=== PATIENT | female | born 1975 | race Caucasian/White ===

== ENCOUNTER → 2016-12-18 | Outpatient (CLI) | payer BC ==
--- NOTE | 2016-12-18 14:21 | XR ---
EXAMINATION TYPE: XR spine complete AP and Lat DATE OF EXAM ORDERED: 12/18/2016 2:14 PM HISTORY: [id number] Pain, unspecified. COMPARISON: Previous study dated 06/20/2014. FINDINGS: The cervical spine, vertebral body height and alignment are maintained. Prevertebral soft tissues are normal. Atlantoaxial relationships are normal. There is no significant degenerative greenfield e. Within the thoracic spine, vertebral body height and alignment are maintained. There is mild hypertro phic spondylosis in the mid to lower dorsal spine. No fractures are seen. Within the lumbar spine, vertebral body height and alignment are maintained. There is disc space loss at L5-S1. There is hypertrophic spondylosis at L1-2 and L5-S1. There is no spondylolysis or spondylo listhesis. The pedicles are intact. IMPRESSION: 1. NO ACUTE OSSEOUS LESION. 2. MILD DEGENERATIVE CHANGE DESCRIBED.
== END | disposition home or self-care (01) ==
LOC: RADXRMAIN 13:49
PROVIDERS: ATTEND Internal Medicine
DX: M47.812 Spondylosis without myelopathy or radiculopathy, cervical region (principal); M47.814 Spondylosis without myelopathy or radiculopathy, thoracic region; M47.816 Spondylosis without myelopathy or radiculopathy, lumbar region
CPT/HCPCS: 72082

== ENCOUNTER → 2018-10-15 | Outpatient (CLI) | payer BC ==
--- NOTE | 2018-10-15 11:20 | MR ---
EXAMINATION TYPE: MR brain wo/w con DATE OF EXAM: 10/15/2018 COMPARISON: NONE HISTORY: Papilledema / Disc Edema TECHNIQUE: Multiplanar, multisequence images of the brain and brainstem is performed without and with IV contras t, utilizing 10 mL intravenous Gadavist . FINDINGS: Diffusion weighted images demonstrate no evidence of a recent infarct or other diffusion ab normality. There is no extra-axial fluid collection or significant white matter signal abnormality. The ventricular system and cisternal spaces are normal in size and appearance. The brain volume is age appropriate. Midline structures demonstrate normal morphology. Incidental note is made of a 3 mm nonenhancing pine al gland cyst. There is a partially empty sella turcica are noted. The craniocervical junction appea rs within normal limits. Post contrast images demonstrate no abnormal enhancement. The dural venous sinuses appear patent. There is mild mucosal thickening of the sphenoid and maxillary sinuses with le ftward nasal septal deviation. There is moderate to severe mucosal thickening within the ethmoid sinu ses and mild mucosal thickening within the frontal sinuses. Partial opacification of the left mastoid air cells are noted. Right mastoid air cells appear well aerated. There is slight undulation of the optic nerves and prominent T2 hyperintensity surrounding the optic nerves. No flattening of the globes posteriorly. Lenses appear in place. No abnormal optic nerve enha ncement. P1 segment of the left posterior cerebral artery appears hypoplastic. IMPRESSION: 1. MRI findings suggest idiopathic intracranial hypertension/pseudotumor cerebri as there is increase d fluid surrounding the optic nerves, undulation of the optic nerves, and partially empty sella turci ca. This is in keeping with the patient's provided history of papilledema. No tonsillar acquired ecto shravan. 2. Overall moderate paranasal sinus disease. 3. No evidence of abnormal intracranial enhancement, acute territorial infarct or midline shift.
== END | disposition home or self-care (01) ==
LOC: RADMRIMAIN 07:00
PROVIDERS: ATTEND Ophthalmology
DX: H47.12 Papilledema associated with decreased ocular pressure (principal)
CPT/HCPCS: 70553; A9585

== ENCOUNTER → 2018-11-25 | Outpatient (CLI) | payer BC | END | disposition home or self-care (01) | LOC: RADMRIMAIN 06:38 | PROVIDERS: ATTEND Psychiatry & Neurology Neurology | DX: Z53.9 Procedure and treatment not carried out, unspecified reason (principal) ==

== ENCOUNTER → 2018-11-27 | Outpatient (CLI) | payer BC ==
--- NOTE | 2018-11-27 09:22 | MR ---
EXAMINATION TYPE: MR venography head wo con DATE OF EXAM: 11/27/2018 COMPARISON: MRI brain October 15, 2018 HISTORY: Headaches, Venous clot, Papilledema Standard multiplanar, multisequence MRI departmental protocol Multiplanar, multisequence images of the brain focusing on draining venous system were acquired. 2-D and 3-D reconstructed images are created on MRI scanner and reviewed. FINDINGS: There is patent draining superior sagittal sinus and straight sinus. There is good visualiz ation of internal cerebral vein of Esc[place] which is patent. There is poor visualization suspected hypop lastic inferior sagittal sinus. There are patent transverse sinuses bilaterally with asymmetric dimin ished size to the right side versus left side draining into patent bilateral sagittal sinuses and pro ximal internal jugular veins bilaterally. IMPRESSION: No convincing MRV evidence for clinically significant cerebral venous thrombosis to account for patie nt's symptoms of papilledema and recent abnormal MRI.
== END | disposition home or self-care (01) ==
LOC: RADMRIMAIN 07:59
PROVIDERS: ATTEND Psychiatry & Neurology Neurology
DX: R51 Headache (principal)
CPT/HCPCS: 70544

== ENCOUNTER → 2018-12-01 | Day surgery (SDC) | payer BC ==
[2018-12-01 08:22] VITALS: RESP 16; TEMP 97.7
--- NOTE | 2018-12-01 10:20 | FL ---
EXAMINATION TYPE: FL guided lumbar puncture LP DATE OF EXAM: 12/01/2018 COMPARISON: NONE HISTORY: G93.2 benign intracranial hypertension TECHNIQUE: Fluoroscopy. Informed consent was obtained and all the patient's questions were answered. The standard sterile reba hnique was utilized as well as appropriate local anesthesia. The L3-4 level was localized under fluor oscopy. 42 seconds of fluoroscopic time was utilized. Spinal needle was introduced into the thecal sa c with a starting pressure of 5.5 and ending pressure of 6.0. 4 test tubes with 1 cc of spinal fluid within each tube was submitted. The patient tolerated the proc edure well left the department in stable condition. IMPRESSION: Successful lumbar puncture.
[2018-12-01 11:07] LABS: Glucose,CSF 52 mg/dL (40-70); Total Protein,CSF 44 mg/dL (12-60)
[2018-12-01 11:50] LABS: Appearance,CSF Clear; CSF Tube Number 4; CSF Tube Volume 1.2; Nucleated Cells, CSF 1 u/L (0-5); Red Blood Cell,CSF 0 u/L (0-10)
[2018-12-01 11:55] VITALS: BP 154/86; PULSE 80
== END | disposition home or self-care (01) ==
LOC: RADPROMAIN 07:48
PROVIDERS: ATTEND Psychiatry & Neurology Neurology
DX: G93.2 Benign intracranial hypertension (principal)
CPT/HCPCS: 88108; 84157; 82945; 89050; 87070; 87205; 62270; J2001